=== PATIENT | male | born 1995 | race Two or more races ===

== ENCOUNTER 2020-11-24 15:23 | Emergency (ER) | payer MEDICAID ==
[~2020-11-24] VITALS: Ht 177.8 cm; Wt 78.0 kg
[2020-11-24 19:12] VITALS: BP 128/82
== END 2020-11-24 19:12 | disposition home or self-care (01) ==
LOC: ER 15:23
DX: S62.300A Unspecified fracture of second metacarpal bone, right hand, initial encounter for closed fracture (principal); W01.0XXA Fall on same level from slipping, tripping and stumbling without subsequent striking against object, initial encounter; Y93.01 Activity, walking, marching and hiking; Y92.89 Other specified places as the place of occurrence of the external cause; Y99.8 Other external cause status
CPT/HCPCS: 29125; 73120; 99283